=== PATIENT | male | born 1935 | race Caucasian/White ===

== ENCOUNTER → 2016-07-30 | Outpatient (REF) | payer MEDICARE, BC ==
[~2016-07-30] MED LIST: ARICEPT10 MG PO; ASPIRIN E.C. 8181 MG PO; ATORVASTATIN; BACTRIM DS 8001 TAB PO; CELEBREX 200MG200 MG PO; CEPHALEXIN500 M1 PO; CO Q-1010 MG PO; CORDARONE200 MG/TAB PO; DIABETIC MED; DIFLUCAN PO; DOXYCYCLINE 10100 MG PO; FLEXERIL 1010 MG/TAB PO; FLOMAX 0.40.4 MG/CAP PO; FLOMAX0.4 MG PO; FORTAMET1000 MG PO; GLUCOPHAGE1000 MG PO; GLUCOPHAGE500 MG/TAB PO; GLUCOVANCE 2.51 TAB PO; K-TAB20 PO; LASIX 40MG TABL40 MG PO; LEVAQUIN 5500 MG/TAB PO; LEXAPRO 10MG10 MG PO; LIPITOR 40MG TA40 MG PO; LISINOPRIL2.5 MG PO; LOPRESSOR 225 MG/TAB PO; LORTAB 2.5/5001 TAB PO; MASON NATURAL1200 MG PO; MOTRIN 200200 MG/TAB PO; NAMENDA 10MG TA10 MG PO; NAMENDA5 MG PO; NATURAL E400 IU PO; NORCO 325 MG-51 TAB PO; OMEGA-3 FISH1000 MG PO; PERCOCET 325 MG1 TA2 PO; PRINIVIL5 MG PO; SEPTRA DS 8001 TAB PO; SYNTHROID0.05 MG/TA PO; TOPROL XL 50MG50 MG PO; TOPROL XL25 MG PO; TYLENOL 325MG325 MG PO; VITAMIN B-1000 MCG/T PO; VITAMIN D 400400 IU PO; VITAMIN D32000 I1 PO; VITAMINC1000TA PO; ZESTRIL 5MG5 MG PO; ZITHROMAX 250M250 MG PO; [UNRECOGNIZED DRUG - OTHER]
== END ==
LOC: EDSTATUS 14:24 → ZMSC 14:25 → ZCOL.LAB 15:02
DX: Z11.2 Encounter for screening for other bacterial diseases (principal)

== ENCOUNTER 2017-02-16 11:30 | Emergency (ER) | payer MEDICARE, BC ==
[~2017-02-16] VITALS: Ht 180.3 cm; Wt 80.6 kg
[~2017-02-16 11:30] MED LIST changes: -GLUCOPHAGE1000 MG PO; -MASON NATURAL1200 MG PO; -VITAMIN D32000 I1 PO
[2017-02-16 11:32] VITALS: TEMP 98.3
[2017-02-16] MEDS ORDERED: GLUCOPHAGE1000 MG PO (12:07)
[2017-02-16] MEDS ORDERED: ASPIRIN E.C. 8181 MG PO (12:10)
[2017-02-16] MEDS ORDERED: MASON NATURAL1200 MG PO (12:10)
[2017-02-16] MEDS ORDERED: VITAMIN D32000 I1 PO (12:11)
[2017-02-16 12:15] LABS: BASO % 0.4 % (0.0-2.0); EOS # 0.1 (0.0-0.7); EOS % 1.3 % (0-4.0); HEMATOCRIT 40.4 % (42.0-52.0); LYMPH # 2.8 (1.2-3.4); LYMPH % 37.1 % (20.0-51.0); MEAN CELL VOLUME 91 fl (80.0-100.0); MEAN CORPUSCULAR HEMOGLOBIN 31 pg (27.0-31.0); MEAN CORPUSCULAR HGB CONC 35 g/dl (33.0-37.0); MEAN PLATELET VOLUME 9.7 fl (7.4-10.4); MONO # 0.7 (0.1-0.6); MONO % 8.9 % (1.7-9.3); PLATELET COUNT 183 K/mm3 (130-400); RED BLOOD COUNT 4.46 M/mm3 (4.20-5.60); REDCELL DISTRIBUTION WIDTH-CV 12.4 % (11.5-14.5); WHITE BLOOD COUNT 7.7 K/mm3 (4.8-10.8)
[2017-02-16 12:21] LABS: ADJUSTED CALCIUM 9.4 mg/dL (8.4-10.2); ALANINE AMINOTRANSFERASE 21 U/L (21-72); ALBUMIN 4.3 gm/dL (3.5-5.0); ALKALINE PHOSPHATASE 48 U/L (50-136); ANION GAP 13 mmol/L (7-16); BILIRUBIN,TOTAL 0.7 mg/dL (0.0-1.0); BLOOD UREA NITROGEN 15 mg/dL (9-20); CALCIUM 9.6 mg/dL (8.4-10.2); CARBON DIOXIDE 23 mmol/L (22-30); CHLORIDE 102 mmol/L (98-107); CREATININE, serum 0.82 mg/dL (0.66-1.25); GLUCOSE 276 mg/dL (74-106); LIPASE 56 U/L (23-300); POTASSIUM 4.1 mmol/L (3.4-5.0); SODIUM 139 mmol/L (137-145); TOTAL PROTEIN 7.3 gm/dL (6.4-8.2)
[2017-02-16 12:23] LABS: ACETAMINOPHEN < 10 ug/mL (10-30); C-REACTIVE PROTEIN < 0.5 mg/dL (0.0-0.9); SALICYLATE < 1.0 mg/dL
[2017-02-16 12:32] LABS: B-TYPE NATRIURETIC PEPTIDE 364 pg/mL (0-450)
[2017-02-16 12:33] LABS: TROPONIN-I < 0.012 ng/mL (0.000-0.034)
[2017-02-16 12:36] LABS: ERYTHROCYTE SEDIMENTATION RATE 4 mm/hr (0-30)
[2017-02-16 12:45] LABS: PH 5 (5-8); URINE APPEARANCE Clear; URINE BACTERIA None Seen /hpf; URINE BILIRUBIN Negative (NEGATIVE); URINE BLOOD Negative (NEGATIVE); URINE COLOR Yellow; URINE GLUCOSE 3+ (NEGATIVE); URINE KETONE Negative (NEGATIVE); URINE RBC 0-2 /hpf; URINE UROBILINOGEN Negative (NEGATIVE); URINE WBC 0-2 /hpf
[2017-02-16 12:49] LABS: AMPHETAMINE URINE NEGATIVE; BARBITURATES URINE NEGATIVE; BENZODIAZEPINES URINE NEGATIVE; BUPRENORPHINE URINE NEGATIVE; METHADONE URINE NEGATIVE; OPIATES URINE NEGATIVE; OXYCODONE URINE NEGATIVE; PHENCYCLIDINE URINE NEGATIVE; PROPOXYPHENE URINE NEGATIVE; THC CANNABINOIDS URINE NEGATIVE
[2017-02-16 13:35] VITALS: BP 131/86; PULSE 74
== END 2017-02-16 13:36 | disposition home or self-care (01) ==
LOC: COL.ER 11:30
PROVIDERS: Emergency Medicine
DX: R41.82 Altered mental status, unspecified (principal); F03.90 Unspecified dementia, unspecified severity, without behavioral disturbance, psychotic disturbance, mood disturbance, and anxiety; E11.9 Type 2 diabetes mellitus without complications; I48.91 Unspecified atrial fibrillation; I25.10 Atherosclerotic heart disease of native coronary artery without angina pectoris; Z95.1 Presence of aortocoronary bypass graft; Z79.84 Long term (current) use of oral hypoglycemic drugs; F17.210 Nicotine dependence, cigarettes, uncomplicated; Z91.81 History of falling
CPT/HCPCS: J7030

== ENCOUNTER 2017-10-18 11:07 | Emergency (ER) | payer MEDICARE, BC ==
[~2017-10-18] VITALS: Ht 167.6 cm; Wt 79.5 kg
[~2017-10-18 11:07] MED LIST changes: +GLUCOPHAGE1000 MG PO; +MASON NATURAL1200 MG PO; +VITAMIN D32000 I1 PO
[2017-10-18 11:27] LABS: BASO # 0.1 (0.0-0.2); BASO % 0.7 % (0.0-2.0); EOS # 0.2 (0.0-0.7); EOS % 2.4 % (0-4.0); GRAN # 4.6 (1.4-6.5); GRAN % 50.1 % (42.2-75.2); HEMATOCRIT 42.8 % (42.0-52.0); HEMOGLOBIN 15.1 g/dl (13.5-18.0); LYMPH # 3.4 (1.2-3.4); LYMPH % 37.5 % (20.0-51.0); MEAN CELL VOLUME 92 fl (80.0-100.0); MEAN CORPUSCULAR HEMOGLOBIN 32 pg (27.0-31.0); MEAN CORPUSCULAR HGB CONC 35 g/dl (33.0-37.0); MEAN PLATELET VOLUME 9.6 fl (7.4-10.4); MONO # 0.8 (0.1-0.6); MONO % 8.5 % (1.7-9.3); PLATELET COUNT 179 K/mm3 (130-400); RED BLOOD COUNT 4.66 M/mm3 (4.20-5.60); REDCELL DISTRIBUTION WIDTH-CV 12.4 % (11.5-14.5)
[2017-10-18 11:33] LABS: PROTHROMBIN TIME 11.4 SECONDS (9.7-12.8)
[2017-10-18 11:36] LABS: PARTIAL THROMBOPLASTIN TIME 28.9 SECONDS (26.0-37.0)
[2017-10-18 11:37] LABS: ALANINE AMINOTRANSFERASE 23 U/L (21-72); ALBUMIN 4.2 gm/dL (3.5-5.0); ALKALINE PHOSPHATASE 66 U/L (50-136); ANION GAP 16 mmol/L (7-16); AST,SGOT 21 U/L (15-37); BILIRUBIN,TOTAL 0.6 mg/dL (0.0-1.0); BLOOD UREA NITROGEN 11 mg/dL (9-20); CALCIUM 9.6 mg/dL (8.4-10.2); CARBON DIOXIDE 22 mmol/L (22-30); CHLORIDE 100 mmol/L (98-107); CREATININE, serum 0.82 mg/dL (0.66-1.25); GLUCOSE 321 mg/dL (74-106); POTASSIUM 4.5 mmol/L (3.4-5.0); SODIUM 137 mmol/L (137-145); TOTAL PROTEIN 7.5 gm/dL (6.4-8.2)
[2017-10-18 11:42] VITALS: TEMP 98
[2017-10-18 11:49] LABS: TROPONIN-I < 0.012 ng/mL (0.000-0.034)
[2017-10-18] MEDS ORDERED: IMDUR 30MG30 MG/TAB PO ×2 (12:04)
[2017-10-18 12:37] VITALS: BP 105/76; PULSE 77
== END 2017-10-18 12:36 | disposition home or self-care (01) ==
LOC: COL.ER 11:07
PROVIDERS: Family Medicine
DX: I20.9 Angina pectoris, unspecified (principal); I10 Essential (primary) hypertension; I25.10 Atherosclerotic heart disease of native coronary artery without angina pectoris; F03.90 Unspecified dementia, unspecified severity, without behavioral disturbance, psychotic disturbance, mood disturbance, and anxiety; F17.210 Nicotine dependence, cigarettes, uncomplicated; Z95.1 Presence of aortocoronary bypass graft; Z79.84 Long term (current) use of oral hypoglycemic drugs; Z79.82 Long term (current) use of aspirin

== ENCOUNTER 2017-11-17 18:12 | Emergency (ER) | payer MEDICARE, BC ==
[~2017-11-17] VITALS: Ht 180.3 cm; Wt 80.2 kg
[~2017-11-17 18:12] MED LIST changes: +IMDUR 30MG30 MG/TAB PO
[2017-11-17 18:24] VITALS: TEMP 98.4
[2017-11-17] MEDS ORDERED: LOPRESSOR 225 MG/TAB PO (19:18)
[2017-11-17 19:36] VITALS: BP 128/95
[2017-11-17 20:18] VITALS: PULSE 70
== END 2017-11-17 20:20 | disposition home or self-care (01) ==
LOC: COL.ER 18:12
DX: M54.5 Low back pain (principal); E11.9 Type 2 diabetes mellitus without complications; I25.2 Old myocardial infarction; G30.9 Alzheimer's disease, unspecified; F02.80 Dementia in other diseases classified elsewhere, unspecified severity, without behavioral disturbance, psychotic disturbance, mood disturbance, and anxiety; F17.210 Nicotine dependence, cigarettes, uncomplicated; Z79.84 Long term (current) use of oral hypoglycemic drugs; Z79.82 Long term (current) use of aspirin; W18.39XA Other fall on same level, initial encounter

== ENCOUNTER 2018-04-23 20:17 | Emergency (ER) | payer MEDICARE, BC ==
[~2018-04-23 20:17] MED LIST changes: +GLUCOTROL10 MG PO
[2018-04-23 20:38] VITALS: TEMP 98.7
[2018-04-23 21:08] LABS: BASO % 0.3 % (0.0-2.0); EOS % 0.1 % (0-4.0); GRAN # 11.8 (1.4-6.5); GRAN % 76.9 % (42.2-75.2); HEMATOCRIT 38.1 % (42.0-52.0); HEMOGLOBIN 13.3 g/dl (13.5-18.0); LYMPH % 12.7 % (20.0-51.0); MEAN CELL VOLUME 89 fl (80.0-100.0); MEAN CORPUSCULAR HEMOGLOBIN 31 pg (27.0-31.0); MEAN CORPUSCULAR HGB CONC 35 g/dl (33.0-37.0); MEAN PLATELET VOLUME 10.1 fl (7.4-10.4); MONO # 1.5 (0.1-0.6); MONO % 9.6 % (1.7-9.3); PLATELET COUNT 178 K/mm3 (130-400); RED BLOOD COUNT 4.26 M/mm3 (4.20-5.60); REDCELL DISTRIBUTION WIDTH-CV 12.6 % (11.5-14.5)
[2018-04-23 21:28] LABS: ALANINE AMINOTRANSFERASE 26 U/L (21-72); ALBUMIN 3.8 gm/dL (3.5-5.0); ALKALINE PHOSPHATASE 101 U/L (50-136); ANION GAP 10 mmol/L (7-16); AST,SGOT 13 U/L (15-37); BILIRUBIN,TOTAL 0.9 mg/dL (0.0-1.0); BLOOD UREA NITROGEN 16 mg/dL (9-20); CALCIUM 9.4 mg/dL (8.4-10.2); CARBON DIOXIDE 24 mmol/L (22-30); CHLORIDE 97 mmol/L (98-107); CREATININE, serum 0.83 mg/dL (0.66-1.25); POTASSIUM 4.5 mmol/L (3.4-5.0); SODIUM 131 mmol/L (137-145)
[2018-04-23 21:32] LABS: ACETONE,SERUM SMALL; GLUCOSE 568 mg/dL (74-106)
[2018-04-23 21:39] LABS: COLLECTION METHOD CLEAN CATCH
[2018-04-23 21:44] LABS: TROPONIN-I < 0.012 ng/mL (0.000-0.034)
[2018-04-23 21:51] LABS: PH 5 (5-8); SQUAMOUS EPITHELIAL 0-2 /hpf; URINE APPEARANCE Clear; URINE BACTERIA None Seen /hpf; URINE BILIRUBIN Negative (NEGATIVE); URINE BLOOD Negative (NEGATIVE); URINE COLOR Straw; URINE GLUCOSE 3+ (NEGATIVE); URINE KETONE 1+ (NEGATIVE); URINE LEUKOCYTE ESTERASE Negative (NEGATIVE); URINE NITRATE Negative (NEGATIVE); URINE PROTEIN(semi-quant) Negative (NEGATIVE); URINE RBC 0-2 /hpf; URINE UROBILINOGEN Negative (NEGATIVE)
[2018-04-23 23:30] VITALS: BP 118/65; PULSE 90
== END 2018-04-23 23:43 | disposition short-term general hospital (02) ==
LOC: COL.ER 20:17
PROVIDERS: Emergency Medicine
DX: N39.0 Urinary tract infection, site not specified (principal); E11.65 Type 2 diabetes mellitus with hyperglycemia; I25.10 Atherosclerotic heart disease of native coronary artery without angina pectoris; F03.90 Unspecified dementia, unspecified severity, without behavioral disturbance, psychotic disturbance, mood disturbance, and anxiety; Z79.84 Long term (current) use of oral hypoglycemic drugs; Z79.82 Long term (current) use of aspirin
CPT/HCPCS: J0696; J1815; J7030

== ENCOUNTER 2018-09-02 14:25 | Emergency (ER) | payer MEDICARE, BC ==
[~2018-09-02] VITALS: Ht 170.2 cm; Wt 79.5 kg
[2018-09-02 14:30] VITALS: BP 128/74; PULSE 73; TEMP 98
== END 2018-09-02 16:30 | disposition home or self-care (01) ==
LOC: COL.ER 14:25
DX: S00.93XA Contusion of unspecified part of head, initial encounter (principal); I10 Essential (primary) hypertension; E11.9 Type 2 diabetes mellitus without complications; F03.90 Unspecified dementia, unspecified severity, without behavioral disturbance, psychotic disturbance, mood disturbance, and anxiety; Z79.82 Long term (current) use of aspirin; Z79.84 Long term (current) use of oral hypoglycemic drugs; W01.10XA Fall on same level from slipping, tripping and stumbling with subsequent striking against unspecified object, initial encounter; Y92.009 Unspecified place in unspecified non-institutional (private) residence as the place of occurrence of the external cause

== ENCOUNTER 2019-05-25 14:11 | Inpatient (IN) | payer MEDICARE, BC ==
[~2019-05-25] VITALS: Ht 165.1 cm; Wt 82.5 kg
[2019-05-25] VITALS (191 sets, daily range): PULSE 85; TEMP 97.8; O2SAT 90–100
[2019-05-25 14:49] LABS: BASO # 0.1 (0.0-0.2); BASO % 0.5 % (0.0-2.0); EOS # 0.1 (0.0-0.7); EOS % 1.2 % (0-4.0); GRAN # 6.5 (1.4-6.5); GRAN % 54.8 % (42.2-75.2); HEMATOCRIT 46.3 % (42.0-52.0); HEMOGLOBIN 15.5 g/dl (13.5-18.0); LYMPH # 4.3 (1.2-3.4); LYMPH % 36.1 % (20.0-51.0); MEAN CELL VOLUME 91 fl (80.0-100.0); MEAN CORPUSCULAR HEMOGLOBIN 31 pg (27.0-31.0); MEAN CORPUSCULAR HGB CONC 34 g/dl (33.0-37.0); MEAN PLATELET VOLUME 9.7 fl (7.4-10.4); MONO # 0.9 (0.1-0.6); MONO % 7.1 % (1.7-9.3); PLATELET COUNT 213 K/mm3 (130-400); RED BLOOD COUNT 5.07 M/mm3 (4.20-5.60); REDCELL DISTRIBUTION WIDTH-CV 12.5 % (11.5-14.5)
[2019-05-25 14:57] LABS: ALANINE AMINOTRANSFERASE < 6 U/L (21-72); ALBUMIN 4.6 gm/dL (3.5-5.0); ALKALINE PHOSPHATASE 97 U/L (50-136); ANION GAP 16 mmol/L (7-16); AST,SGOT 19 U/L (15-37); BILIRUBIN,TOTAL 0.5 mg/dL (0.0-1.0); BLOOD UREA NITROGEN 16 mg/dL (9-20); C-REACTIVE PROTEIN 0.6 mg/dL (0.0-0.9); CARBON DIOXIDE 20 mmol/L (22-30); CHLORIDE 106 mmol/L (98-107); CREATININE, serum 0.96 (0.66-1.25); GLUCOSE 262 mg/dL (74-106); POTASSIUM 4.2 mmol/L (3.4-5.0); SODIUM 141 mmol/L (137-145); TOTAL PROTEIN 8.2 gm/dL (6.4-8.2)
[2019-05-25 15:12] LABS: TROPONIN-I < 0.012 ng/mL (0.000-0.035)
[2019-05-25 15:43] LABS: COLLECTION METHOD CLEAN CATCH
[2019-05-25 15:50] LABS: MUCOUS Present /lpf; PH 5 (5-8); SQUAMOUS EPITHELIAL 0-2 /hpf; URINE APPEARANCE Clear; URINE BACTERIA Rare /hpf; URINE BILIRUBIN Negative (NEGATIVE); URINE BLOOD Negative (NEGATIVE); URINE COLOR Yellow; URINE GLUCOSE 1+ (NEGATIVE); URINE KETONE Negative (NEGATIVE); URINE LEUKOCYTE ESTERASE Negative (NEGATIVE); URINE NITRATE Negative (NEGATIVE); URINE PROTEIN(semi-quant) 1+ (NEGATIVE); URINE RBC 0-2 /hpf
[2019-05-25] MEDS ORDERED: GLUCOPHAGE1000 MG PO (21:05)
[2019-05-26] VITALS (1031 sets, daily range): BP systolic 111–154; BP diastolic 78–89; PULSE 74–92; TEMP 97.3–98.4; O2SAT 77–100
[2019-05-26 07:23] LABS: BASO % 0.4 % (0.0-2.0); EOS # 0.3 (0.0-0.7); EOS % 3.4 % (0-4.0); GRAN # 3.2 (1.4-6.5); GRAN % 43.4 % (42.2-75.2); HEMATOCRIT 40.1 % (42.0-52.0); LYMPH # 3.1 (1.2-3.4); LYMPH % 42.4 % (20.0-51.0); MEAN CELL VOLUME 92 fl (80.0-100.0); MEAN CORPUSCULAR HEMOGLOBIN 31 pg (27.0-31.0); MEAN CORPUSCULAR HGB CONC 33 g/dl (33.0-37.0); MEAN PLATELET VOLUME 9.4 fl (7.4-10.4); MONO # 0.8 (0.1-0.6); MONO % 10.1 % (1.7-9.3); PLATELET COUNT 169 K/mm3 (130-400); RED BLOOD COUNT 4.37 M/mm3 (4.20-5.60); REDCELL DISTRIBUTION WIDTH-CV 12.5 % (11.5-14.5)
[2019-05-26 07:41] LABS: ALBUMIN 3.5 gm/dL (3.5-5.0); BILIRUBIN,TOTAL 0.7 mg/dL (0.0-1.0); CREATININE, serum 0.71 (0.66-1.25); MAGNESIUM 1.4 mg/dL (1.6-2.3); POTASSIUM 3.9 mmol/L (3.4-5.0); TOTAL PROTEIN 6.4 gm/dL (6.4-8.2)
[2019-05-26 08:31] LABS: HEMOGLOBIN 13.4 g/dl (13.5-18.0)
[2019-05-27 05:03] VITALS: BP 135/80; PULSE 62; TEMP 97.3
[2019-05-27 06:42] LABS: BASO % 0.5 % (0.0-2.0); EOS # 0.3 (0.0-0.7); EOS % 3.9 % (0-4.0); GRAN # 3.7 (1.4-6.5); GRAN % 44.3 % (42.2-75.2); HEMATOCRIT 38.7 % (42.0-52.0); HEMOGLOBIN 13.4 g/dl (13.5-18.0); LYMPH # 3.5 (1.2-3.4); LYMPH % 41.2 % (20.0-51.0); MEAN CELL VOLUME 91 fl (80.0-100.0); MEAN CORPUSCULAR HEMOGLOBIN 32 pg (27.0-31.0); MEAN CORPUSCULAR HGB CONC 35 g/dl (33.0-37.0); MEAN PLATELET VOLUME 9.6 fl (7.4-10.4); MONO # 0.8 (0.1-0.6); PLATELET COUNT 180 K/mm3 (130-400); RED BLOOD COUNT 4.26 M/mm3 (4.20-5.60); REDCELL DISTRIBUTION WIDTH-CV 12.4 % (11.5-14.5)
[2019-05-27 07:04] LABS: CALCIUM 9.5 mg/dL (8.4-10.2); CREATININE, serum 0.82 (0.66-1.25); MAGNESIUM 1.8 mg/dL (1.6-2.3)
[2019-05-27 07:25] VITALS: BP 146/72; PULSE 77; TEMP 98.2
[2019-05-27 12:06] VITALS: BP 119/58; PULSE 84; TEMP 97.6
== END 2019-05-27 14:00 | disposition home or self-care (01) | DRG 57 ==
LOC: COL.ER 14:11 → IMCU 16:18 → MEDICAL 05-26 18:20
PROVIDERS: Emergency Medicine; Nurse Practitioner Family; ADMIT Internal Medicine
DX: G30.9 Alzheimer's disease, unspecified (principal); E87.2 Acidosis; F02.80 Dementia in other diseases classified elsewhere, unspecified severity, without behavioral disturbance, psychotic disturbance, mood disturbance, and anxiety; I10 Essential (primary) hypertension; E03.9 Hypothyroidism, unspecified; N40.0 Benign prostatic hyperplasia without lower urinary tract symptoms; F17.210 Nicotine dependence, cigarettes, uncomplicated; E83.42 Hypomagnesemia; E11.9 Type 2 diabetes mellitus without complications; Z87.01 Personal history of pneumonia (recurrent); I25.2 Old myocardial infarction; Z95.5 Presence of coronary angioplasty implant and graft; Z95.1 Presence of aortocoronary bypass graft; Z79.82 Long term (current) use of aspirin; Z88.2 Allergy status to sulfonamides; Z88.1 Allergy status to other antibiotic agents
CPT/HCPCS: 99223-AI; 99232-AI; 99239; A4216; J0692; J1650; J1815; J3370; J3475; J7030; J7050

== ENCOUNTER 2019-07-10 22:11 | Inpatient (IN) | payer MEDICARE, BC ==
[~2019-07-10] VITALS: Ht 180.3 cm; Wt 76.6 kg
[2019-07-10 22:35] LABS: HEMOGLOBIN 13.6 g/dl (13.5-18.0); MEAN CELL VOLUME 91 fl (80.0-100.0); MEAN CORPUSCULAR HEMOGLOBIN 31 pg (27.0-31.0); MEAN CORPUSCULAR HGB CONC 34 g/dl (33.0-37.0); MEAN PLATELET VOLUME 10.1 fl (7.4-10.4); PLATELET COUNT 164 K/mm3 (130-400); RED BLOOD COUNT 4.42 M/mm3 (4.20-5.60); REDCELL DISTRIBUTION WIDTH-CV 12.7 % (11.5-14.5)
[2019-07-10 22:38] LABS: INR 1.1 (0.8-3.0); PROTHROMBIN TIME 13.2 SECONDS (9.7-12.8)
[2019-07-10 22:44] LABS: ALANINE AMINOTRANSFERASE < 6 U/L (21-72); ALBUMIN 4.1 gm/dL (3.5-5.0); ALKALINE PHOSPHATASE 104 U/L (50-136); ANION GAP 11 mmol/L (7-16); AST,SGOT 12 U/L (15-37); BLOOD UREA NITROGEN 18 mg/dL (9-20); CALCIUM 9.3 mg/dL (8.4-10.2); CARBON DIOXIDE 25 mmol/L (22-30); CHLORIDE 102 mmol/L (98-107); GLUCOSE 334 mg/dL (74-106); POTASSIUM 4.9 mmol/L (3.4-5.0); SODIUM 138 mmol/L (137-145); TOTAL PROTEIN 7.3 gm/dL (6.4-8.2)
[2019-07-10 22:55] LABS: TROPONIN-I 0.014 ng/mL (0.000-0.035)
[2019-07-10 23:07] LABS: BAND 10 % (0-10); LYMPHOCYTE 13 % (20.0-51.0); NEUTROPHILS 72 % (42.0-75.2); PLATELET ESTIMATE NORMAL (NORMAL)
[2019-07-10 23:51] LABS: COLLECTION METHOD CATHETER
[2019-07-10 23:58] LABS: MUCOUS Present /lpf; PH 5 (5-8); SQUAMOUS EPITHELIAL None Seen /hpf; URINE APPEARANCE Clear; URINE BACTERIA Rare /hpf; URINE BILIRUBIN Negative (NEGATIVE); URINE BLOOD 1+ (NEGATIVE); URINE COLOR Yellow; URINE GLUCOSE 3+ (NEGATIVE); URINE KETONE 1+ (NEGATIVE); URINE LEUKOCYTE ESTERASE Negative (NEGATIVE); URINE NITRATE Positive (NEGATIVE); URINE PROTEIN(semi-quant) Negative (NEGATIVE); URINE RBC 0-2 /hpf
--- NOTE | 2019-07-11 02:20 | NUR ---
Patient arrives at this time via ED cart. Patient transferred to unit bed via slide. Patient is uncooperative with staff for turning. Does not follow directions to take deep breaths, but is able to squeeze hands when asked. Patient is very confused and only oriented to self. Patient does not complain of pain, nor does he appear in pain. Assessment reveals clear lungs in the upper lobes with fine crackles in the bases and well as bases being diminished. HR and rhythm are regular with heart sounds very distant and hard to auscultate. Patient is in sinus rhythm with a 1st degree AVB with frequent PVC's and couplets. Bowel sounds active x4. Peripheral pulses are palpable and no edema noted in extremities. Patient has some abrasions/scratches to BLE that vary in size and healing stage, most are scabbed; no open wounds noted. , Holly, is at the bedside and answers all admission questions. She states in the past month patient has become incontinent of urine, and in the past week of stool. Oriented to unit and room. Educated reconciliation clerk light. She has no further questions at this time. Will follow up with orders as entered. No needs at this time. Will continue to monitor.
[2019-07-11] MEDS ORDERED: NAMENDA 10MG TA10 MG PO (02:39)
[2019-07-11 02:45] VITALS: BP 92/70; PULSE 95; TEMP 99.2
[2019-07-11 04:00] VITALS: BP 111/55; PULSE 99; TEMP 99.2
--- NOTE | 2019-07-11 04:00 | NUR ---
Placed at 16F james catheter at this time. Patient was combative and required multiple staff members to assist with insertion. Insertion was nontraumatic. Patient continued to screaam, kick, and punch staff. Once inserted patient calmed down. Vitals obtained and remain stable. Patient does not appear to be in any pain. states "What are you going to do about that catheter? He will pull it out". Let her know that if he does try to pull the catheter that the next step would be mitts to prevent him from pulling lines and hurting himself. She confirms understanding. No further needs. Will continue to monitor.
[2019-07-11 06:14] LABS: TROPONIN-I 0.021 ng/mL (0.000-0.035)
--- NOTE | 2019-07-11 07:36 | NUR ---
Bedside report given to CASSIDY Vogel. Assisted with cleaning patient after incontinence and repositioning. Transfer of care at this time.
--- NOTE | 2019-07-11 08:04 | NUR ---
Vancomycin Initial Dosing Pharmacy Note Ordering provider: Nile Dalal MD Indication/duration: Sepsis, UTI, URI LABS: eCrCl ~ 60, initial WBC 18.7 Recommendation: Loading dose: 1.5 grams given in ED 07/11/19 @ 02:30 Maintenance dose: 1 gram every 12 hours Trough goal: 15-20 ug/mL with first level ordered for 07/13/19 @ 13:30. Will continue to follow.
[2019-07-11 08:30] VITALS: BP 128/86; PULSE 90; TEMP 97.2
[2019-07-11 08:41] LABS: HEMATOCRIT 39.2 % (42.0-52.0); HEMOGLOBIN 13.3 g/dl (13.5-18.0); MEAN CELL VOLUME 91 fl (80.0-100.0); MEAN CORPUSCULAR HEMOGLOBIN 31 pg (27.0-31.0); MEAN CORPUSCULAR HGB CONC 34 g/dl (33.0-37.0); MEAN PLATELET VOLUME 9.8 fl (7.4-10.4); PLATELET COUNT 145 K/mm3 (130-400); RED BLOOD COUNT 4.33 M/mm3 (4.20-5.60); REDCELL DISTRIBUTION WIDTH-CV 12.5 % (11.5-14.5)
[2019-07-11 08:47] LABS: ALBUMIN 3.8 gm/dL (3.5-5.0); BILIRUBIN,TOTAL 1.4 mg/dL (0.0-1.0); CALCIUM 8.9 mg/dL (8.4-10.2); CREATININE, serum 0.95 (0.66-1.25); POTASSIUM 4.3 mmol/L (3.4-5.0); TOTAL PROTEIN 6.9 gm/dL (6.4-8.2)
[2019-07-11 12:00] VITALS: BP 116/57; PULSE 87; TEMP 98.1
[2019-07-11 12:08] LABS: BAND 3 % (0-10); LYMPHOCYTE 25 % (20.0-51.0); NEUTROPHILS 68 % (42.0-75.2); PLATELET ESTIMATE NORMAL (NORMAL)
--- NOTE | 2019-07-11 12:55 | NUR ---
PT PLACED ON 2L NC D/T BORDERLINE O2 SAT WHILE SLEEPING. PATIENT DECREASING TO 88-89% WHILE ON ROOM AIR WHILE SLEEPING. O2 SAT WITH 2L NC NOW 96%.
[2019-07-11 16:00] VITALS: BP 103/64; PULSE 93; TEMP 97.9
--- NOTE | 2019-07-11 19:10 | NUR ---
Bedside report received from CASSIDY Rueda
[2019-07-11 20:00] VITALS: BP 120/73; PULSE 94; TEMP 99.8
--- NOTE | 2019-07-11 20:00 | NUR ---
Patient laying in bed resting at this time. He occasionally raises his arms and punches at the air. Patient awakens to name. He is very hard of hearing. Patient is not entirely following commands but will answer simple questions. Patient fights against staff when cares are provided and becomes combative quickly. Vitals obtained and are WNL. Patient has a low grade fever of 99.8 axillary. Lungs are coarse in the upper lobes bilaterally with diminished bases. There are also crackles in the bases. HR and rhythm are regular with frequent PVC's, normal S1 and S2 heard. Bowel sounds active x4. Peripheral pulses are palpable. Patient has no changes in skin integrity. Patient denies pain and does not appear to be in any. No further needs at this time. Will continue to monitor. Call light within reach.
--- NOTE | 2019-07-11 21:10 | NUR ---
Attempted to give patient oral medications at this time. Sat patient up to 90 degrees. Patient is alert and answering questions. Sip of water offered. Patient drinks and immediately beings to choke. Patient coughs for the next 3 minutes. Remained at bedside for a further 5 minutes to ensure no further issues. Oral medications not given. Will keep patient NPO.
[2019-07-12] VITALS: BP 98/66; PULSE 80; TEMP 99
--- NOTE | 2019-07-12 | NUR ---
Patient resting peacefully at this time. Vitals obtained and remain stable. Patient shows no signs of pain or distress. Will continue to monitor. Call light within reach.
--- NOTE | 2019-07-12 03:05 | NUR ---
Patient awake at this time and restless. Patient has legs hanging over the side of the bed upon entrance and he is trying to pull the mitts off. Patient states "I have to pee". Tried to explain that he has a catheter and it is draining perfectly. Patient cannot be redirected and he continues to try and get out of bed. Patient given haldol. Remained with patient until he calmed down. Repositioned patient in bed and boosted. checked catheter and tubing to ensure no kinks or twists, urine is draining.
[2019-07-12 04:00] VITALS: BP 106/64; PULSE 81; TEMP 98.5
--- NOTE | 2019-07-12 05:30 | NUR ---
Patient is awake at this time and trying to climb out of bed. Patient is confused, but was cooperative when told he was in the hospital. With that he laid back in bed and followed commands. Patient repositioned and made comfortable. Will continue to monitor.
--- NOTE | 2019-07-12 06:00 | NUR ---
Patient awake again and climbing out of bed. Redirected with some cooperation.
[2019-07-12 06:20] LABS: BASO % 0.4 % (0.0-2.0); EOS # 0.2 (0.0-0.7); EOS % 2.1 % (0-4.0); GRAN # 7.2 (1.4-6.5); GRAN % 64.1 % (42.2-75.2); HEMATOCRIT 38.6 % (42.0-52.0); HEMOGLOBIN 12.8 g/dl (13.5-18.0); LYMPH # 2.6 (1.2-3.4); LYMPH % 23.2 % (20.0-51.0); MEAN CELL VOLUME 91 fl (80.0-100.0); MEAN CORPUSCULAR HEMOGLOBIN 30 pg (27.0-31.0); MEAN CORPUSCULAR HGB CONC 33 g/dl (33.0-37.0); MEAN PLATELET VOLUME 10.5 fl (7.4-10.4); MONO # 1.1 (0.1-0.6); MONO % 9.8 % (1.7-9.3); PLATELET COUNT 141 K/mm3 (130-400); RED BLOOD COUNT 4.23 M/mm3 (4.20-5.60); REDCELL DISTRIBUTION WIDTH-CV 12.7 % (11.5-14.5)
[2019-07-12 06:30] LABS: CALCIUM 8.9 mg/dL (8.4-10.2); CREATININE, serum 0.91 (0.66-1.25); POTASSIUM 3.7 mmol/L (3.4-5.0)
--- NOTE | 2019-07-12 07:16 | NUR ---
Bedside report given to CASSIDY Leary
[2019-07-12 08:00] VITALS: BP 120/89; PULSE 82; TEMP 98
--- NOTE | 2019-07-12 08:00 | NUR ---
Shift assessment complete at this time. Plan of care reviewed at bedside with patient et spouse. Additional time taken to address any other needs or concerns. Vitals stable at this time. Pt denies pain or any other discomforts. Bed in low position, call light within reach, will continue to monitor.
--- NOTE | 2019-07-12 09:30 | NUR ---
Initial visit; Patient and his appeared to be appreciative of visit from Postdoctoral Fellow who offered prayer and encouragement for Felicia's .
--- NOTE | 2019-07-12 11:11 | NUR ---
Occupational Health Nurse Supervisor attended rounds with the team and patient to move up to the medical floor today. SW attempted to meet with patient however patient is poor historian and mostly talked about how he feels the weather is not good. SW contacted patient's , Holly (ph#[phone]) who states patient's primary care physician is Dr. Stuart Solano and that she and patient have lived in an apartment in [place] for about 3 months. Holly states it's not exactly Assisted Living but that she has two chains she can pull if she needs immediate assistance. Patient states she has talked to Dr. Solano about sending patient to [facility] for rehab upon discharge. SW attempted to present Patient Choice form over the phone however patient states she is driving and will be at the hospital soon. SW to continue to follow.
[2019-07-12 12:00] VITALS: BP 110/71; PULSE 83; TEMP 98
--- NOTE | 2019-07-12 12:00 | NUR ---
Pt resting comfortably in bed. Denies pain or any other discomforts. Vitals stable at this time. Bed in low position, call light within reach, will continue to monitor.
--- NOTE | 2019-07-12 13:58 | NUR ---
Secretary Bookkeeper met with patient's , Holly (ph#[phone]) to present and review patient choice form. Per last conversation, patient's would like for patient to go to [facility] for a skilled stay upon discharge. Holly selected [facility] and provided signature. SW placed form in chart and faxed referral to [facility]. OSMANY spoke with CASSIDY Rojas at [facility] who will call SW if she does not receive fax here soon. SW to continue to follow.
--- NOTE | 2019-07-12 14:08 | NUR ---
Plastic Tubing Insulation Supervisor did not locate Advance Directives in patient EMR. OSMANY met with patient's , Holly who advised an store receiving clerk named Rupert did the DPOA-HC for patient. OSMANY contacted [employer] plaster maker office who confirmed they had DPOA paperwork. The office obtained verbal consent from Holly to fax copy to OSMANY. OSMANY provided fax number and will place DPOA paperwork in chart when received.
[2019-07-12 16:40] VITALS: BP 104/60; PULSE 91; TEMP 98.6
--- NOTE | 2019-07-12 17:45 | NUR ---
Patient resting in bed. Report from Gibran, Patient has been resting in bed with significant other at bedside. Incontinece of urine, new brief and pericare provided. Patient did become aggitated with repositioning. Patient speaks, but conversation is confused. Ivf & antibioitc per orders to [place]. Npo per orders.
--- NOTE | 2019-07-12 19:45 | NUR ---
Pt. laying in bed at this time. Pt. is alert and confused. Pt. denies pain. at bedside. IV to lt. ac patent, IV fluids infusing per orders. Pt. and denies further needs, call light within reach.
[2019-07-12 20:13] VITALS: BP 116/67; PULSE 98; TEMP 98.2
[2019-07-13 04:08] VITALS: BP 100/59; PULSE 81; TEMP 98.2
[2019-07-13 08:00] VITALS: BP 132/76; PULSE 98; TEMP 98.2
[2019-07-13 08:44] LABS: BASO # 0.1 (0.0-0.2); BASO % 0.5 % (0.0-2.0); EOS # 0.2 (0.0-0.7); EOS % 1.7 % (0-4.0); GRAN % 63.9 % (42.2-75.2); HEMOGLOBIN 13.1 g/dl (13.5-18.0); LYMPH # 2.8 (1.2-3.4); LYMPH % 25.3 % (20.0-51.0); MEAN CELL VOLUME 91 fl (80.0-100.0); MEAN CORPUSCULAR HEMOGLOBIN 31 pg (27.0-31.0); MEAN CORPUSCULAR HGB CONC 34 g/dl (33.0-37.0); MEAN PLATELET VOLUME 10.2 fl (7.4-10.4); MONO # 0.9 (0.1-0.6); MONO % 8.2 % (1.7-9.3); PLATELET COUNT 177 K/mm3 (130-400); REDCELL DISTRIBUTION WIDTH-CV 12.5 % (11.5-14.5)
[2019-07-13 08:50] LABS: CALCIUM 9.2 mg/dL (8.4-10.2); CREATININE, serum 0.84 (0.66-1.25); POTASSIUM 3.7 mmol/L (3.4-5.0)
--- NOTE | 2019-07-13 11:07 | NUR ---
Follow-up; Attorney offered spiritual care to Felicia's as he rested, in support of their physician who encouraged her to let Felicia be cared for in a fdc, at least for awhile, so she could rest.
[2019-07-13 11:54] VITALS: BP 117/66; PULSE 82; TEMP 97.6
--- NOTE | 2019-07-13 12:35 | NUR ---
First visit from the certified pharmacist assistant. No needs right now.
--- NOTE | 2019-07-13 13:29 | NUR ---
Gail, at [facility], reports that they would not be able to accept the patient. She states that they would want him in their dementia unit and that they do not have a bed available in it at this time. OSMANY met with the patient and his to inform and presented her with Medicare.gov's list of nursing homes in the [facility]. The patient's expressed her frustrations. The patient's reports that her second preference would then be [facility]. OSMANY contacted and faxed a referral to Alea at [facility]. Alea reports that they should be able to accept the patient, but that their sales office administrator needs to talk to the patient's first. SW to update the patient's and will continue to follow.
[2019-07-13 17:19] VITALS: BP 118/85; PULSE 78; TEMP 97.6
--- NOTE | 2019-07-13 18:30 | NUR ---
Patient slept most the day and than started trying to get up and became more confused around 1600. No complaints of pain or nausea. His is at bedside. Patient has been incontinent of urine. He was changed about 3-4 times today. No bowel movements. Patient is not able to verbalized needs. His bed alarm is on. No other changes at this time. Call light within reach. Giving haldol at this time.
[2019-07-13 19:14] VITALS: BP 123/72; PULSE 73; TEMP 99.1
--- NOTE | 2019-07-13 19:30 | NUR ---
PATIENT RESTLESS, HAS LEGS OVER SIDE OF BED. SPOUSE AT BEDSIDE. DOES NOT FOLLOW COMMANDS WELL. HAS MITTS ON BOTH HANDS TO PROTECT IV SITE. WEARING OXYGEN AT 2L/NC. IS ALERT, CONFUSED. BED ALARM ON.
--- NOTE | 2019-07-13 21:50 | NUR ---
HAS EYES CLOSED. IVF INFUSING TO LEFT AC WITHOUT REDNESS OR SWELLING. SPOUSE AT BEDSIDE.
[2019-07-14 00:06] VITALS: PULSE 78
[2019-07-14 06:10] VITALS: BP 137/89; PULSE 89; TEMP 97.5
[2019-07-14 07:04] LABS: BASO % 0.6 % (0.0-2.0); EOS # 0.3 (0.0-0.7); GRAN # 3.9 (1.4-6.5); GRAN % 56.8 % (42.2-75.2); HEMATOCRIT 37.6 % (42.0-52.0); HEMOGLOBIN 12.7 g/dl (13.5-18.0); LYMPH % 28.6 % (20.0-51.0); MEAN CELL VOLUME 91 fl (80.0-100.0); MEAN CORPUSCULAR HEMOGLOBIN 31 pg (27.0-31.0); MEAN CORPUSCULAR HGB CONC 34 g/dl (33.0-37.0); MONO # 0.7 (0.1-0.6); MONO % 9.4 % (1.7-9.3); PLATELET COUNT 180 K/mm3 (130-400); RED BLOOD COUNT 4.15 M/mm3 (4.20-5.60); REDCELL DISTRIBUTION WIDTH-CV 12.6 % (11.5-14.5)
[2019-07-14 07:27] VITALS: BP 119/63; PULSE 64; TEMP 97.8
[2019-07-14 07:32] LABS: CALCIUM 8.9 mg/dL (8.4-10.2); CREATININE, serum 0.78 (0.66-1.25); POTASSIUM 3.4 mmol/L (3.4-5.0)
--- NOTE | 2019-07-14 08:00 | NUR ---
PATIENT IS CONFUSED. HX OF DEMENTIA. PATIENT'S REPORTS HE IS AT BASELINE. PATIENT WILL OCCATIONALLY GET FRUSTERATED AT HIMSELF AND HIT HIMSELF. TRIES TO REDIRECT PATIENT'S FRUSTERATIONS. MITTS TO BUE PRN. PATIENT APPEARS TO BE COMFORTABLE, UNABLE TO USE PAIN SCALE. VSS. TELE INPLACE. AFEBRILE. DNR. ST AT BEDSIDE TO ASSIST WITH BREAKFAST. PATIENT HIGH RISK FOR ASPIRATION. [facility] SOFT DIET. THICKENED LIQUIDS. GAVE MEDS CRUSHED IN APPLESAUCE. PT/OT/ST. HEAD TO TOE ASSESSMENT COMPLETE. AT BEDSIDE.
--- NOTE | 2019-07-14 11:17 | NUR ---
Follow-up visit; Patient sitting up, Regulatory Lead offered encouragement and Linda Pedro.
[2019-07-14] MEDS ORDERED: OMNICEF 300MG300 MG PO (11:18)
[2019-07-14] MEDS ORDERED: TOPROL XL 25MG25 MG PO (11:20)
--- NOTE | 2019-07-14 11:23 | NUR ---
Alea, at [facility], reports that they are able to accept the patient for a skilled stay. OSMANY informed the patient and her and they are both in agreeance to go there. The patient is to discharge today, 07/14, to [facility] for a skilled stay. Transportation was scheduled for around [id number], via [facility]. OSMANY informed the patient, patient's , and his RN. They were all in agreeance to the time. OSMANY also presented and explained the IM form to the patient's . The patient's verbalized understanding, signed, and she was provided a copy. No additional needs at this time.
[2019-07-14 11:34] VITALS: BP 119/63; PULSE 64; TEMP 97.8
--- NOTE | 2019-07-14 13:15 | NUR ---
PATIENT DISCHARGING SNF VIA [facility]. GAVE INFO PACKET TO [facility] DR[facility]. CALLED REPORTS TO NURSE. PATIENT DRESSED AND PACKED. DC'D LEFT AC IV, COVERED SITE WITH COBAN. PATIENT DISCHARGED.
== END 2019-07-14 13:15 | DRG 872 ==
LOC: COL.ER 22:11 → ICU 23:30 → SURG 07-12 15:00
PROVIDERS: Emergency Medicine; Nurse Practitioner Primary Care; Physician Assistant; ADMIT Hospitalist
DX: A41.9 Sepsis, unspecified organism (principal); N39.0 Urinary tract infection, site not specified; E87.2 Acidosis; S80.812A Abrasion, left lower leg, initial encounter; S80.811A Abrasion, right lower leg, initial encounter; S80.212A Abrasion, left knee, initial encounter; I10 Essential (primary) hypertension; E11.9 Type 2 diabetes mellitus without complications; E03.9 Hypothyroidism, unspecified; F17.210 Nicotine dependence, cigarettes, uncomplicated; J06.9 Acute upper respiratory infection, unspecified; E86.0 Dehydration; G30.9 Alzheimer's disease, unspecified; F02.80 Dementia in other diseases classified elsewhere, unspecified severity, without behavioral disturbance, psychotic disturbance, mood disturbance, and anxiety; F32.9 Major depressive disorder, single episode, unspecified; Z66 Do not resuscitate; N40.0 Benign prostatic hyperplasia without lower urinary tract symptoms; Z95.5 Presence of coronary angioplasty implant and graft; Z95.1 Presence of aortocoronary bypass graft; Z79.82 Long term (current) use of aspirin; Z79.84 Long term (current) use of oral hypoglycemic drugs; Z88.2 Allergy status to sulfonamides; Z88.1 Allergy status to other antibiotic agents; Z23 Encounter for immunization
CPT/HCPCS: 99222-AI; 99231-AI; 99232-AI; 99239; C9113; J1630; J1650; J1815; J2060; J2543; J3370; J7030; J7050

== ENCOUNTER 2019-10-10 08:40 | Emergency (ER) | payer MEDICARE, BC ==
[~2019-10-10] VITALS: Ht 167.6 cm; Wt 72.3 kg
[~2019-10-10 08:40] MED LIST changes: +OMNICEF 300MG300 MG PO; +TOPROL XL 25MG25 MG PO
[2019-10-10 08:52] VITALS: TEMP 98.1
[2019-10-10 09:13] LABS: BASO % 0.5 % (0.0-2.0); EOS # 0.3 (0.0-0.7); EOS % 4.1 % (0-4.0); GRAN # 3.3 (1.4-6.5); GRAN % 41.2 % (42.2-75.2); HEMATOCRIT 40.9 % (42.0-52.0); HEMOGLOBIN 13.6 g/dl (13.5-18.0); LYMPH # 3.6 (1.2-3.4); LYMPH % 45.4 % (20.0-51.0); MEAN CELL VOLUME 92 fl (80.0-100.0); MEAN CORPUSCULAR HEMOGLOBIN 31 pg (27.0-31.0); MEAN CORPUSCULAR HGB CONC 33 g/dl (33.0-37.0); MEAN PLATELET VOLUME 9.9 fl (7.4-10.4); MONO # 0.7 (0.1-0.6); MONO % 8.5 % (1.7-9.3); PLATELET COUNT 149 K/mm3 (130-400); RED BLOOD COUNT 4.43 M/mm3 (4.20-5.60); REDCELL DISTRIBUTION WIDTH-CV 13.3 % (11.5-14.5)
[2019-10-10 09:15] LABS: PROTHROMBIN TIME 11.5 SECONDS (9.7-12.8)
[2019-10-10 09:20] LABS: ALANINE AMINOTRANSFERASE 10 U/L (4-49); ALBUMIN 4.3 gm/dL (3.5-5.0); ALKALINE PHOSPHATASE 67 U/L (50-136); ANION GAP 14 mmol/L (7-16); AST,SGOT 15 U/L (15-37); BILIRUBIN,TOTAL 0.6 mg/dL (0.0-1.0); BLOOD UREA NITROGEN 12 mg/dL (9-20); CALCIUM 9.8 mg/dL (8.4-10.2); CARBON DIOXIDE 25 mmol/L (22-30); CHLORIDE 103 mmol/L (98-107); CREATININE, serum 0.83 (0.66-1.25); GLUCOSE 201 mg/dL (74-106); SODIUM 142 mmol/L (137-145); TOTAL PROTEIN 7.3 gm/dL (6.4-8.2)
[2019-10-10 09:31] LABS: TROPONIN-I < 0.012 ng/mL (0.000-0.035)
[2019-10-10 10:22] VITALS: BP 108/65; PULSE 87
== END 2019-10-10 10:24 | disposition home or self-care (01) ==
LOC: COL.ER 08:40
PROVIDERS: Emergency Medicine
DX: S61.412A Laceration without foreign body of left hand, initial encounter (principal); S00.511A Abrasion of lip, initial encounter; I10 Essential (primary) hypertension; E11.9 Type 2 diabetes mellitus without complications; Z79.82 Long term (current) use of aspirin; Z79.84 Long term (current) use of oral hypoglycemic drugs; W01.0XXA Fall on same level from slipping, tripping and stumbling without subsequent striking against object, initial encounter; Y92.22 Religious institution as the place of occurrence of the external cause